=== PATIENT | male | born 1965 | race Caucasian/White ===

== ENCOUNTER 2017-07-18 11:28 | Inpatient (IN) | payer BC ==
[2017-07-18 11:34] VITALS: BMI 30.7
--- NOTE | 2017-07-18 11:58 | ED PDOC ---
HPI: Back Time Seen by Provider: 07/18/17 11:58 Chief Complaint (Nursing): Back Pain Chief Complaint (Provider): back pain History Per: Patient Additional Complaint(s): 52 year old male with history of chronic low back pain presents to ED for eval of persistent low back pain with radiation to left leg ongoing for several months. Patient has been under the care of a plate painter and takes oxycodone and Percocet daily but this does not provide adequate pain relief. He denies any recent fall or trauma. Patient states he has had chronic back pain for years but it has worsened over the past few months. Patient was referred to Dr. Valdes from his plate painter for further evaluation of back pain. Upon arrival patient rates pain as a 10 out of 10. He denies acute bowel or bladder dysfunction. Past Medical History Reviewed: Historical Data, Nursing Documentation, Vital Signs Vital Signs: Last Vital Signs Temp 97.8 F 07/18/17 11:34 Pulse 86 07/18/17 11:34 Resp 18 07/18/17 11:34 BP 149/72 07/18/17 11:34 Pulse Ox 99 07/18/17 11:34 - Medical History PMH: Back Problems, Fibromyalgia, HTN - Surgical History Other surgeries: right foot surgery - Family History Family History: States: No Known Family Hx - Living Arrangements Living Arrangements: With Family - Social History Current smoker - smoking cessation education provided: No Ex-Smoker (has not smoked in the last 12 months): No Alcohol: None Drugs: Denies - Home Medications Home Medications: Ambulatory Orders Medication Instructions Recorded ALPRAZolam [Xanax] 1 mg PO HS 07/18/17 Celecoxib [Celebrex] 200 mg PO HS 07/18/17 Cholecalciferol (Vitamin D3) 20,000 unit PO MO 07/18/17 [Vitamin D3] Cyanocobalamin [Vitamin B12] 1,000 mcg PO DAILY 07/18/17 DULoxetine [Cymbalta] 30 mg PO DAILY@1200 07/18/17 DULoxetine [Cymbalta] 60 mg PO DAILY 07/18/17 Dextroamphetamine/Amphetamine 20 mg PO DAILY@1200 07/18/17 [Adderall 20 mg Tablet] Esomeprazole Magnesium [Nexium] 40 mg PO DAILY 07/18/17 Gabapentin [Neurontin] 400 mg PO HS 07/18/17 Lisdexamfetamine Dimesylate 30 mg PO DAILY 07/18/17 [Vyvanse] Lisinopril [Zestril] 40 mg PO DAILY 07/18/17 Metoprolol Succinate [Toprol XL] 100 mg PO DAILY 07/18/17 Oxycodone HCl [Oxycontin] 10 mg PO Q12H 07/18/17 Testosterone Cypionate 200 mg IM Q14D 07/18/17 [Depo-Testosterone Inj] tiZANidine [Zanaflex] 4 mg PO HS PRN 07/18/17 - Allergies Allergies/Adverse Reactions: Allergies Allergy/AdvReac Type Severity Reaction Status Date / Time No Known Allergies Allergy Verified 07/18/17 11:48 Review of Systems ROS Statement: Except As Marked, All Systems Reviewed And Found Negative Constitutional: Negative for: Fever Cardiovascular: Negative for: Chest Pain Gastrointestinal: Negative for: Nausea, Vomiting Genitourinary Male: Negative for: Dysuria, Frequency, Incontinence, Hematuria Musculoskeletal: Positive for: Back Pain, Leg Pain Physical Exam - Reviewed Nursing Documentation Reviewed: Yes Vital Signs Reviewed: Yes - Physical Exam Appears: Positive for: Well, Non-toxic, No Acute Distress Skin: Negative for: Rash Eye Exam: Positive for: Normal appearance, EOMI, PERRL Cardiovascular/Chest: Positive for: Regular Rate, Rhythm Respiratory: Positive for: Normal Breath Sounds Back: Positive for: Vertebral Tenderness (left lumbar region). Negative for: L CVA Tenderness, R CVA Tenderness Extremity: Positive for: Normal ROM Neurologic/Psych: Positive for: Alert, Oriented - Laboratory Results Result Diagrams: 07/18/17 13:30 07/18/17 13:30 - ECG Interpretation Of ECG: NSR 73 bpm, LVH, reviewed by PA and ED attending. O2 Sat by Pulse Oximetry: 99 Pulse Ox Interpretation: Normal - Other Rad Bedside chest X-Ray: Interpreted by Me, Viewed By Me X-Ray Interpretation: no active disease, no acute finding Medical Decision Making Medical Decision Makin52 year old with intractable back pain Plan: CBC CMP IVF EKG CXR IV morphine IV zofran Patient with severe intractable back pain and associated left lower extremity radiculopathy, not improved by conservative management with pain medication and outpatient treatment. Case was d/w Dr. Delacruz who will admit patient on behalf of Dr. Valdes. Patient to go to surgery tomorrow with Dr. Valdes. Patient is aware of and agrees with plan. Family practice resident was contacted for admission as per request of Dr. Delacruz. Disposition - Clinical Impression Clinical Impression: Intractable back pain, Lumbar radiculopathy, acute - Patient ED Disposition Is Patient to be Admitted: Yes - Disposition Disposition Time: 12:25 Condition: FAIR - Pt Status Changed To: Hospital Disposition Of: Inpatient - Admit Certification Admit to Inpatient:: After my assessment, the patient will require hospitalization for at least two midnights. This is because of the severity of symptoms shown, intensity of services needed, and/or the medical risk in this patient being treated as an outpatient. - POA Present On Arrival: None Results - Lab Results Lab Results: 07/18/17 07/18/17 07/18/17 13:30 13:30 13:30 WBC RBC Hgb Hct MCV MCH MCHC RDW Plt Count MPV Neut % (Auto) Lymph % (Auto) [place] % (Auto) Eos % (Auto) Baso % (Auto) Neut # Lymph # [place] # Eos # Baso # PT 10.9 INR 1.1 APTT 32.4 Sodium 140 Potassium 4.7 Chloride 102 Carbon Dioxide 27 Anion Gap 16 BUN 15 Creatinine 1.3 Est GFR ( Amer) > 60 Est GFR (Non-Af Amer) 58 Random Glucose 100 Calcium 9.6 Total Bilirubin 0.7 AST 41 ALT 55 Alkaline Phosphatase 57 Total Protein 7.8 Albumin 4.6 Globulin 3.2 Albumin/Globulin Ratio 1.5 Blood Type O POSITIVE Antibody Screen Negative BBK History Checked No verified bt 07/18/17 13:30 WBC 5.9 RBC 5.72 Hgb 17.3 Hct 51.1 H MCV 89.4 MCH 30.3 MCHC 33.9 RDW 14.4 Plt Count 189 MPV 9.1 Neut % (Auto) 68.3 Lymph % (Auto) 20.4 [place] % (Auto) 8.3 Eos % (Auto) 2.6 Baso % (Auto) 0.4 Neut # 4.1 Lymph # 1.2 Karnes # 0.5 Eos # 0.2 Baso # 0.0 PT INR APTT Sodium Potassium Chloride Carbon Dioxide Anion Gap BUN Creatinine Est GFR ( Amer) Est GFR (Non-Af Amer) Random Glucose Calcium Total Bilirubin AST ALT Alkaline Phosphatase Total Protein Albumin Globulin Albumin/Globulin Ratio Blood Type Antibody Screen BBK History Checked
[2017-07-18] MEDS ORDERED: Sodium Chloride 0.9% 1,000 ML IV STA (12:26)
--- NOTE | 2017-07-18 13:22 | RAD ---
HISTORY: admit COMPARISON: No prior. FINDINGS: LUNGS: The lungs are clear. PLEURA: No significant pleural effusion identified, no pneumothorax apparent. CARDIOVASCULAR: There is mild cardiomegaly. OSSEOUS STRUCTURES: No significant abnormalities. VISUALIZED UPPER ABDOMEN: Normal. OTHER FINDINGS: None. IMPRESSION: No active pulmonary disease.
--- NOTE | 2017-07-18 13:42 | CP.PCM.HP ---
History of Present Illness - History of Present Illness History of Present Illness: 52 year old male with hx of fibromyalgia, htn and chronic lower back pain presented to [facility], [place] for intractable back pain. Pain has been present for years with worseningin the past few months. He denies any trauma or inciting event that triggered his back pain. 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 Back pain is severe with associated left lateral leg pain. He states that his ROM is somewhat limited but he is able to do daily activities. He has some numbness and tingling in left leg. No bowel or bladder incontinence/retention. He reports good effort tolerance. No chest pain, shortness of breath or history of cardiac disease. Accompanied by his . 12 point review of systems negative except as above PMH: htn, fibromyalgia, chronic back pain Social: denies smoking, etoh, illicit drug use. Past surgical hx: bunion surgery Medications: reviewed Allergies: NKDA Present on Admission - Present on Admission Any Indicators Present on Admission: No Past Patient History - Past Social History Alcohol: None Drugs: Denies - CARDIAC Hx Hypertension: Yes - PSYCHIATRIC Hx Substance Use: No - SURGICAL HISTORY Other/Comment: Bunionectomy - ANESTHESIA Hx Anesthesia: Yes Hx Anesthesia Reactions: No Meds Allergies/Adverse Reactions: Allergies Allergy/AdvReac Type Severity Reaction Status Date / Time No Known Allergies Allergy Verified 07/18/17 11:48 Physical Exam - Constitutional Appears: No Acute Distress (s/p pain medication, pain controlled) - Head Exam Head Exam: ATRAUMATIC, NORMAL INSPECTION, NORMOCEPHALIC - Eye Exam Eye Exam: Normal appearance - ENT Exam ENT Exam: Mucous Membranes Moist, Normal Exam - Respiratory Exam Respiratory Exam: Clear to Auscultation Bilateral, NORMAL BREATHING PATTERN. absent: Rales, Rhonchi, Wheezes, Respiratory Distress - Cardiovascular Exam Cardiovascular Exam: REGULAR RHYTHM, +S1, +S2. absent: Bradycardia, Tachycardia - GI/Abdominal Exam GI & Abdominal Exam: Normal Bowel Sounds, Soft. absent: Tenderness - Extremities Exam Extremities exam: Positive for: normal inspection. Negative for: pedal edema, tenderness - Back Exam Back exam: NORMAL INSPECTION, tenderness (mild lumbosacral midline tenderness) - Neurological Exam Neurological exam: Alert, CN II-XII Intact, Oriented x3, Reflexes Normal Additional comments: gait not assessed - Psychiatric Exam Psychiatric exam: Normal Affect, Normal Mood - Skin Skin Exam: Dry, Intact, Normal Color, Warm Results - Vital Signs Recent Vital Signs: Last Vital Signs Temp 97.8 F 07/18/17 11:34 Pulse 86 07/18/17 11:34 Resp 18 07/18/17 11:34 BP 149/72 07/18/17 11:34 Pulse Ox 99 07/18/17 13:37 - Labs Result Diagrams: 07/18/17 13:30 07/18/17 13:30 Assessment & Plan (1) Lumbar radiculopathy, acute Assessment and Plan: 52 year old male with hx of chronic back pain now with intractable back pain and lumbar radiculopathy, Dr. Valdes - consult ; -no bowel/bladder incontinence -labs ordered/ekg/cxr -pain control with morphine PRN -case d/w attending. Status: Acute (2) Intractable back pain Status: Chronic (3) Fibromyalgia Status: Chronic (4) HTN (hypertension) Assessment and Plan: controlled Status: Chronic (5) DVT prophylaxis Assessment and Plan: scds Status: Acute
[2017-07-18 14:12] LABS: BASO % 0.4 % (0.0-2.0); EOS # 0.2 K/uL (0.0-0.7); EOS % 2.6 % (0.0-4.0); HEMATOCRIT 51.1 % (35.0-51.0); LYMPH # 1.2 K/uL (1.0-4.3); LYMPH % 20.4 % (20.0-40.0); MEAN CELL VOLUME 89.4 fl (80.0-94.0); MEAN CORPUSCULAR HEMOGLOBIN 30.3 pg (27.0-31.0); MEAN CORPUSCULAR HGB CONC 33.9 g/dL (33.0-37.0); MEAN PLATELET VOLUME 9.1 fl (7.2-11.7); MONO # 0.5 K/uL (0.0-0.8); MONO % 8.3 % (0.0-10.0); NEUT # 4.1 K/uL (1.8-7.0); NEUT % 68.3 % (50.0-75.0); NRBC % 1.7 % (0.0-0.0); RED CELL DISTRIBUTION WIDTH 14.4 % (11.5-14.5); WHITE BLOOD COUNT 5.9 K/uL (4.8-10.8)
[2017-07-18 14:23] LABS: ALB/GLOB RATIO 1.5 (1.0-2.1); ALKALINE PHOSPHATASE 57 U/L (38-126); ALT/SGPT 55 U/L (21-72); AST/SGOT 41 U/L (17-59); BILIRUBIN,TOTAL 0.7 mg/dl (0.2-1.3); BLOOD UREA NITROGEN 15 mg/dl (9-20); CALCIUM 9.6 mg/dL (8.4-10.2); CARBON DIOXIDE 27 mmol/L (22-30); CHLORIDE 102 mmol/L (98-107); GFR AFRICAN-AMERICAN > 60; GLUCOSE,RANDOM 100 mg/dL (75-110); SODIUM 140 mmol/l (132-148); TOTAL PROTEIN 7.8 G/DL (6.3-8.2)
[2017-07-18 14:24] LABS: PARTIAL THROMBOPLASTIN TIME 32.4 Seconds (25.6-37.1)
[2017-07-18 14:41] LABS: POTASSIUM 4.7 MMOL/L (3.6-5.0)
[2017-07-18] MEDS ORDERED: Pneumococcal 23-Valent Vaccine IM ONE (18:28)
[2017-07-18] MEDS: oxyCODONE 10 mg ER Tab (oxyCONTIN) PO SCH (18:40)
[2017-07-18] MEDS: Dextrose 5%/0.45% NS 1,000 ML IV SCH (20:09)
[2017-07-18] MEDS ORDERED: Sodium Chloride 0.9% 1,000 ML IV SCH (22:00)
[2017-07-18] MEDS: Amoxicillin-Clav 875-125 mg Tab PO SCH (22:21)
[2017-07-19] MEDS: oxyCODONE 10 mg ER Tab (oxyCONTIN) PO SCH ×2 (03:21→15:06)
--- NOTE | 2017-07-19 07:54 | CP.PCM.CON ---
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 Review of Systems - Review of Systems Systems not reviewed;Unavailable: Acuity of Condition - Cardiovascular Additional comments: Hx Htn - Gastrointestinal Additional comments: lactose Intolerance - Musculoskeletal Musculoskeletal: Muscle Weakness, Radiating Pain into Limb, Tingling - Neurological Neurological: As Per HPI Additional comments: Hx Fibromyalgia - Psychiatric Additional comments: Hx ADHD - Hematologic/Lymphatic Additional comments: last used Advil 2 weeks ago Past Patient History - Infectious Disease Hx of Infectious Diseases: None - Tetanus Immunizations Tetanus Immunization: Unknown - Past Medical History & Family History Past Medical History?: Yes - Past Social History Smoking Status: Never Smoked Chewing Tobacco Use: No Cigar Use: No 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 Pt recently had root canal sx from left upper mouth X 1 week ago - RENAL Hx Chronic Kidney Disease: No - ENDOCRINE/METABOLIC Hx Endocrine Disorders: No - INTEGUMENTARY Hx Dermatological Problems: No - MUSCULOSKELETAL/RHEUMATOLOGICAL Hx Musculoskeletal Disorders: Yes Hx Back Pain: Yes Hx Falls: No Other/Comment: Fibromyalagia - GASTROINTESTINAL Hx Gastrointestinal Disorders: No - GENITOURINARY/GYNECOLOGICAL Hx Genitourinary Disorders: No - PSYCHIATRIC Hx Substance Use: No Other/Comment: Hx of ADHD - SURGICAL HISTORY Other/Comment: Bunionectomy - ANESTHESIA Hx Anesthesia: Yes Hx Anesthesia Reactions: No Meds Home Medications: Home Medication List Medication Instructions Recorded Confirmed Type Clindamycin [Cleocin] 300 mg PO Q8 #15 cap 07/20/17 Rx Dexamethasone [Decadron] 4 mg PO DAILY #10 tab 07/20/17 Rx Lactobacillus Acidophilus [Bacid 1 cap PO DAILY #15 cap 07/20/17 Rx Acidophilus] Naloxegol Oxalate [Movantik] 25 mg PO DAILY #30 tab 07/20/17 Rx oxyCODONE/Acetaminophen [Percocet 1 ea PO Q4 #30 tab 07/20/17 Rx 5/325 mg Tab] Allergies/Adverse Reactions: Allergies Allergy/AdvReac Type Severity Reaction Status Date / Time No Known Allergies Allergy Verified 07/18/17 11:48 - Medications Medications: Current Medications Acetaminophen (Tylenol 325mg Tab) 325 mg PO Q6 PRN PRN Reason: Pain, Mild (1-3) Alprazolam (Xanax) 1 mg PO HS [facility] Last Admin: 07/18/17 21:40 Dose: 1 mg Amoxicillin/Clavulanate Potassium (Augmentin 875 Mg-125 Mg Tab) 1 tab PO Q12 [facility] Last Admin: 07/18/17 22:21 Dose: 1 tab Amphetamine/Dextroamphetamine (Adderall) 20 mg PO DAILY@1200 [facility] Celecoxib (Celebrex) 200 mg PO [facility] Last Admin: 07/18/17 21:40 Dose: 200 mg Duloxetine HCl (Cymbalta) 30 mg PO DAILY@1200 [facility] Duloxetine HCl (Cymbalta) 60 mg PO DAILY [facility] Gabapentin (Neurontin) 400 mg PO [facility] Last Admin: 07/18/17 21:40 Dose: 400 mg Home Med (Cholecalciferol (Vitamin D3) [Vitamin D3]) 20,000 unit PO MO [facility] Dextrose/Sodium Chloride (Dextrose 5%/0.45% Ns 1000 Ml) 1,000 mls @ 80 mls/hr IV .[id number] [facility] Stop: 07/19/17 19:21 Last Admin: 07/18/17 20:09 Dose: 80 mls/hr Lisdexamfetamine Dimesylate (Vyvanse) 30 mg PO DAILY [facility] Metoprolol Succinate (Toprol Xl) 100 mg PO DAILY [facility] Morphine Sulfate (Morphine) 2 mg IVP Q4 PRN PRN Reason: Pain, moderate (4-7) Morphine Sulfate (Morphine) 4 mg IVP Q4 PRN PRN Reason: Pain, severe (8-10) Last Admin: 07/18/17 21:26 Dose: 4 mg Ondansetron HCl (Zofran Inj) 4 mg IVP Q6 PRN PRN Reason: Nausea/Vomiting Oxycodone HCl (Oxycontin Extended Release Tab) 10 mg PO Q12H [facility] Stop: 07/21/17 14:46 Last Admin: 07/19/17 03:21 Dose: Not Given Pantoprazole Sodium (Protonix Ec Tab) 40 mg PO DAILY [facility] Sennosides (Senokot Tab) 17.2 mg PO HS [facility] Tizanidine HCl (Zanaflex) 4 mg PO HS PRN PRN Reason: Muscle spasm Physical Exam - Constitutional Appears: Well, Non-toxic, No Acute Distress - Head Exam Head Exam: ATRAUMATIC, NORMOCEPHALIC - Eye Exam Eye Exam: EOMI, Normal appearance, PERRL Pupil Exam: NORMAL ACCOMODATION - ENT Exam ENT Exam: Mucous Membranes Moist - Neck Exam Neck exam: Positive for: Normal Inspection - Respiratory Exam Respiratory Exam: Clear to Auscultation Bilateral - Cardiovascular Exam Cardiovascular Exam: REGULAR RHYTHM, +S1, +S2 - GI/Abdominal Exam GI & Abdominal Exam: Normal Bowel Sounds, Soft - Rectal Exam Rectal Exam: Deferred - Extremities Exam Extremities exam: Positive for: pedal pulses present Additional comments: calves soft NT - Back Exam Back exam: vertebral tenderness - Neurological Exam Neurological exam: Alert, Oriented x3 Additional comments: RODRIGUES x 4 antigravity limited LLE secondary to back pain,+ SLR at 30 degree's LLE, decreased sensation left L4-5 dermatome,+ 2 DTR's,neg babinski,no pelvic paresthesias - Psychiatric Exam Psychiatric exam: Normal Affect, Normal Mood - Skin Skin Exam: Dry, Intact Results - Vital Signs Recent Vital Signs: Last Vital Signs Temp 97.7 F 07/19/17 00:41 Pulse 73 07/19/17 00:41 Resp 230 H 07/19/17 00:41 BP 144/74 07/19/17 00:41 Pulse Ox 99 07/19/17 00:41 - Labs Result Diagrams: 07/20/17 05:35 07/20/17 05:35 Labs: Laboratory Results - last 24 hr 07/18/17 07/18/17 07/18/17 13:30 13:30 13:30 WBC 5.9 RBC 5.72 Hgb 17.3 Hct 51.1 H MCV 89.4 MCH 30.3 MCHC 33.9 RDW 14.4 Plt Count 189 MPV 9.1 Neut % (Auto) 68.3 Lymph % (Auto) 20.4 [place] % (Auto) 8.3 Eos % (Auto) 2.6 Baso % (Auto) 0.4 Neut # 4.1 Lymph # 1.2 [place] # 0.5 Eos # 0.2 Baso # 0.0 PT 10.9 INR 1.1 APTT 32.4 Sodium 140 Potassium 4.7 Chloride 102 Carbon Dioxide 27 Anion Gap 16 BUN 15 Creatinine 1.3 Est GFR ( Amer) > 60 Est GFR (Non-Af Amer) 58 Random Glucose 100 Calcium 9.6 Total Bilirubin 0.7 AST 41 ALT 55 Alkaline Phosphatase 57 Total Protein 7.8 Albumin 4.6 Globulin 3.2 Albumin/Globulin Ratio 1.5 Blood Type Antibody Screen BBK History Checked 07/18/17 13:30 WBC RBC Hgb Hct MCV MCH MCHC RDW Plt Count MPV Neut % (Auto) Lymph % (Auto) [place] % (Auto) Eos % (Auto) Baso % (Auto) Neut # Lymph # [place] # Eos # Baso # PT INR APTT Sodium Potassium Chloride Carbon Dioxide Anion Gap BUN Creatinine Est GFR ( Amer) Est GFR (Non-Af Amer) Random Glucose Calcium Total Bilirubin AST ALT Alkaline Phosphatase Total Protein Albumin Globulin Albumin/Globulin Ratio Blood Type O POSITIVE Antibody Screen Negative BBK History Checked No verified bt Assessment & Plan - Assessment and Plan (Free Text) Assessment: 52 yo male with Lumbar Spondylosis and HNP Left L4-5 with LLE radiculapathy Plan: risks and benefits d/w pt regarding surgery,expressed understanding and wishes to proceed.
[2017-07-19] MEDS: Amoxicillin-Clav 875-125 mg Tab PO SCH (08:16)
[2017-07-19] MEDS: Pantoprazole 40 mg EC Tab PO SCH (08:17)
[2017-07-19] MEDS: Metoprolol Succinate 100 mg XL Tab PO SCH (08:22)
[2017-07-19] MEDS: Dextrose 5%/0.45% NS 1,000 ML IV SCH (08:24)
[2017-07-19] MEDS ORDERED: Amoxicillin-Clav 875-125 mg Tab PO SCH (09:00)
[2017-07-19] MEDS ORDERED: Bupivacaine HCl 0.25% PF (30 ml) Inj ONE (09:57)
[2017-07-19] MEDS ORDERED: Thrombin Topical 5,000 IU Spray Kit ONE (09:58)
[2017-07-19] MEDS ORDERED: Midazolam 2 MG/2 ML VIAL ONE (09:59)
[2017-07-19] MEDS ORDERED: Succinylcholine 200 mg/10 ml Inj IV ONE (09:59)
[2017-07-19] MEDS ORDERED: Rocuronium 10 mg/ml (5 ml) ONE ×2 (09:59→11:12)
[2017-07-19] MEDS ORDERED: Propofol 10 mg/ml Inj (20 ML) ONE (09:59)
[2017-07-19] MEDS ORDERED: ePHEDrine 50 mg/ml Inj ONE (09:59)
[2017-07-19] MEDS ORDERED: Absorbable Gelatin Sponge Size 100 ONE (09:59)
[2017-07-19] MEDS ORDERED: Lactated Ringer's 1,000 ML IV ONE ×3 (10:15→12:10)
[2017-07-19] MEDS ORDERED: Dexamethasone 4 mg/1 ml ONE ×2 (11:03)
[2017-07-19] MEDS ORDERED: Neostigmine Methylsulfate 3mg/3ml Syringe IV ONE (11:37)
[2017-07-19] MEDS ORDERED: Neostigmine Methylsulfate 2 MG/2 ML ML IV ONE (11:37)
[2017-07-19] MEDS ORDERED: Gelatin Sponge 10 X 12.5 cm (Gelfilm Sterile Non Opthalmic) MM ONE (11:50)
[2017-07-19] MEDS ORDERED: HEMOSTATIC MATRIX 10 ML DIS.NEEDLE TOP ONE (11:50)
[2017-07-19] MEDS ORDERED: Thrombin Topical 5,000 IU Spray Kit TOP ONE (11:54)
[2017-07-19] MEDS ORDERED: Bupivacaine HCl 0.25% PF (30 ml) Inj IJ ONE (11:54)
[2017-07-19] MEDS ORDERED: Sodium Chloride 0.9% 500 ML IV ONE (11:55)
[2017-07-19] MEDS: HYDROmorphone 0.5 mg/0.5 ml ISec IVP PRN ×4 (12:20→13:10)
--- NOTE | 2017-07-19 13:56 | CP.PCM.PN ---
Subjective - Date & Time of Evaluation Date of Evaluation: 07/19/17 Time of Evaluation: 14:33 - Subjective Subjective: POD# 0 Patient seen and examined by attending in AM preop. Patient seen and examined by the press writer post operatively in PACU. He tolerated the procedure well. Patient sleeping, but arousable. No complaints of pain or nausea. He will be transferred back to Med/Surg floor shortly. All of the above d/w patients bedside. Objective - Vital Signs/Intake and Output Vital Signs (last 24 hours): Temp Pulse Resp BP Pulse Ox 97.5 F L 78 18 127/79 96 07/19/17 12:53 07/19/17 13:40 07/19/17 13:40 07/19/17 13:40 07/19/17 13:40 Intake and Output: 07/19/17 07/19/17 06:59 18:59 Intake Total 1999 Balance 1999 - Medications Medications: Current Medications Acetaminophen (Tylenol 325mg Tab) 325 mg PO Q6 PRN PRN Reason: Pain, Mild (1-3) Alprazolam (Xanax) 1 mg PO [facility] Last Admin: 07/18/17 21:40 Dose: 1 mg Amphetamine/Dextroamphetamine (Adderall) 20 mg PO DAILY@1200 [facility] Duloxetine HCl (Cymbalta) 30 mg PO DAILY@1200 [facility] Duloxetine HCl (Cymbalta) 60 mg PO DAILY [facility] Last Admin: 07/19/17 08:17 Dose: Not Given Enoxaparin Sodium (Lovenox) 40 mg SC DAILY [facility] PRN Reason: Protocol Gabapentin (Neurontin) 400 mg PO [facility] Last Admin: 07/18/17 21:40 Dose: 400 mg Home Med (Cholecalciferol (Vitamin D3) [Vitamin D3]) 20,000 unit PO MO [facility] Hydromorphone HCl (Dilaudid) 0.5 mg IVP Q10M PRN PRN Reason: Pain, severe (8-10) Stop: 07/19/17 14:19 Last Admin: 07/19/17 13:10 Dose: 0.5 mg Dextrose/Sodium Chloride (Dextrose 5%/0.45% Ns 1000 Ml) 1,000 mls @ 80 mls/hr IV .[id number] [facility] Stop: 07/19/17 19:21 Last Admin: 07/19/17 08:24 Dose: 80 mls/hr Clindamycin Phosphate 600 mg/ (Sodium Chloride) 104 mls @ 104 mls/hr IVPB Q8 [facility] Dexamethasone 4 mg/ Sodium (Chloride) 51 mls @ 102 mls/hr IVPB Q6 [facility] Lisdexamfetamine Dimesylate (Vyvanse) 30 mg PO DAILY [facility] Last Admin: 07/19/17 08:17 Dose: Not Given Metoprolol Succinate (Toprol Xl) 100 mg PO DAILY [facility] Last Admin: 07/19/17 08:22 Dose: 100 mg Morphine Sulfate (Morphine) 2 mg IVP Q4 PRN PRN Reason: Pain, moderate (4-7) Morphine Sulfate (Morphine) 4 mg IVP Q4 PRN PRN Reason: Pain, severe (8-10) Last Admin: 07/18/17 21:26 Dose: 4 mg Ondansetron HCl (Zofran Inj) 4 mg IVP Q6 PRN PRN Reason: Nausea/Vomiting Ondansetron HCl (Zofran Inj) 4 mg IVP ONCE PRN PRN Reason: Nausea/Vomiting Stop: 07/19/17 14:19 Oxycodone HCl (Oxycontin Extended Release Tab) 10 mg PO Q12H [facility] Stop: 07/21/17 14:46 Last Admin: 07/19/17 03:21 Dose: Not Given Pantoprazole Sodium (Protonix Ec Tab) 40 mg PO DAILY [facility] Last Admin: 07/19/17 08:17 Dose: Not Given Sennosides (Senokot Tab) 17.2 mg PO HS [facility] Tizanidine HCl (Zanaflex) 4 mg PO HS PRN PRN Reason: Muscle spasm - Labs Labs: 07/18/17 13:30 07/18/17 13:30 PT 10.9 Seconds (9.8-13.1) 07/18/17 13:30 INR 1.1 (0.9-1.2) 07/18/17 13:30 APTT 32.4 Seconds (25.6-37.1) 07/18/17 13:30 - Constitutional Appears: Other (sleeping but arousable) - Eye Exam Eye Exam: Normal appearance - ENT Exam ENT Exam: Mucous Membranes Moist - Respiratory Exam Respiratory Exam: Clear to Ausculation Bilateral, NORMAL BREATHING PATTERN. absent: Rales, Rhonchi, Wheezes, Respiratory Distress - Cardiovascular Exam Cardiovascular Exam: REGULAR RHYTHM, +S1, +S2. absent: Bradycardia, Tachycardia Additional comments: HR 80s - GI/Abdominal Exam GI & Abdominal Exam: Soft. absent: Distended, Guarding, Tenderness - Extremities Exam Extremities Exam: absent: Pedal Edema, Tenderness - Neurological Exam Neurological Exam: CN II-XII Intact - Psychiatric Exam Psychiatric exam: Normal Affect, Normal Mood - Skin Skin Exam: Dry, Intact, Normal Color. absent: Diaphoretic, Pallor, Rash Assessment and Plan (1) Lumbar radiculopathy, acute Assessment & Plan: POD#0 s/p lumbar laminectomy 52 year old male with hx of chronic back pain now with intractable back pain and lumbar radiculopathy. Patient tolerated procedure well. -Pain control as ordered. -Senokot for constipation -pt/ot eval tomorrow Status: Acute (2) Intractable back pain Status: Chronic (3) Fibromyalgia Status: Chronic (4) HTN (hypertension) Assessment & Plan: Controlled Status: Chronic (5) DVT prophylaxis Assessment & Plan: lovenox in am, scds for now Status: Acute
[2017-07-19] MEDS: Clindamycin 600 MG in Sodium Chloride 0.9% 100 ML IVPB SCH (16:16)
[2017-07-19] MEDS: AMPHETAMINE SALT COMBINATION 10 MG TAB PO SCH (16:42)
[2017-07-19] MEDS: Dexamethasone 4 MG in Sodium Chloride 0.9% 50 ML IVPB SCH ×2 (16:43→21:16)
[2017-07-19 19:08] VITALS: RESP 20
[2017-07-20] MEDS: Clindamycin 600 MG in Sodium Chloride 0.9% 100 ML IVPB SCH ×2 (00:15→09:32)
[2017-07-20] MEDS: oxyCODONE 10 mg ER Tab (oxyCONTIN) PO SCH (02:53)
[2017-07-20] MEDS: Dexamethasone 4 MG in Sodium Chloride 0.9% 50 ML IVPB SCH ×2 (03:00→10:58)
--- NOTE | 2017-07-20 04:36 | OP ---
PROCEDURE DATE: 06/18/2017 PREOPERATIVE DIAGNOSIS: Lumbar herniated disk. POSTOPERATIVE DIAGNOSIS: Lumbar herniated disk. PROCEDURES: Left L4-L5 hemilaminotomy, medial facetectomy, microdiscectomy. Microscope has been used. Fluoroscopy has been used. SURGEON: Meng Valdes MD BRANCH MECHANIC: Michelle Morrell PA-C. Michelle Morrell is a physician pier master assistant who stayed throughout the case from the beginning to end, helped me to perform the surgery. DESCRIPTION OF PROCEDURE: The patient was brought to the operating room, anesthetized with general endotracheal anesthesia, placed in a prone position on a Jhon table. Care was taken to protect all pressure points. Back of the lumbar area thoroughly prepped and draped in same sterile manner after marking was consistent for lumbar laminectomy at L4-L5. After prepping and draping the area, skin has been incised. Bleeding skins have been controlled with bipolar washing machine operator. After using a Bovie washing machine operator, paraspinal muscles have been detached, attachments of spinous process, lamina of L4-L5. Светлана retractor has been applied to alter the facet joint of L4-L5. Fluoroscopy has been used in order to confirm this level. Under microscopic examination, the lamina of L4-L5, medial part of the facets of L4-L5 have been drilled. Drilling is continued till the top and bottom of the ligamentum flavum seen. Drilling is also continued on the middle part of the facets until the turn of ligamentum flavum has been seen. Once this has been done, lamina, medial part of the facets, ligamentum flavum has been removed. Note that neural tube had been retracted medially. Annulus has been incised. There was a large piece of herniated disk noted that has been removed. Various sizes of Pituitary rongeurs and curettes have been used in order to remove the all loose fragments and the nerve root has been found to be lax after that removal of the disk fragments. After hemostasis best achieved, fascia across the interspinous ligaments, spinous process with 1-Vicryl, subcutaneous tissue with 3-Vicryl. Skin had been closed with intradermal 3 Vicryl stitches. The patient tolerated the procedure, after procedure mobilized to the recovery room in stabilized condition. Meng Valdes MD
[2017-07-20 06:10] LABS: BASO % 0.2 % (0.0-2.0); BLOOD UREA NITROGEN 15 mg/dl (9-20); CALCIUM 8.9 mg/dL (8.4-10.2); CARBON DIOXIDE 24 mmol/L (22-30); CHLORIDE 102 mmol/L (98-107); GFR AFRICAN-AMERICAN > 60; GLUCOSE,RANDOM 124 mg/dL (75-110); HEMATOCRIT 45.9 % (35.0-51.0); LYMPH # 0.8 K/uL (1.0-4.3); LYMPH % 5.6 % (20.0-40.0); MEAN CELL VOLUME 90.5 fl (80.0-94.0); MEAN CORPUSCULAR HGB CONC 33.2 g/dL (33.0-37.0); MONO # 0.4 K/uL (0.0-0.8); MONO % 3.1 % (0.0-10.0); NEUT # 12.4 K/uL (1.8-7.0); NEUT % 91.1 % (50.0-75.0); NRBC % 0.2 % (0.0-0.0); PLATELET COUNT 180 K/uL (130-400); POTASSIUM 4.8 MMOL/L (3.6-5.0); RED CELL DISTRIBUTION WIDTH 14.3 % (11.5-14.5); SODIUM 137 mmol/l (132-148); WHITE BLOOD COUNT 13.6 K/uL (4.8-10.8)
[2017-07-20 07:04] VITALS: TEMP 97.7
[2017-07-20 07:32] VITALS: BP 129/68; PULSE 82; O2SAT 99
[2017-07-20 08:53] LABS: NEUTROPHIL 85 % (42-75); TOTAL CELLS COUNTED 100
[2017-07-20] MEDS ORDERED: Enoxaparin 40 mg Syringe SC SCH (09:00)
[2017-07-20] MEDS ORDERED: Ergocalciferol 50,000 Intl Units Cap PO SCH (09:30)
[2017-07-20] MEDS: Metoprolol Succinate 100 mg XL Tab PO SCH (09:33)
[2017-07-20] MEDS: Pantoprazole 40 mg EC Tab PO SCH (09:33)
--- NOTE | 2017-07-20 13:05 | CP.PCM.PCO ---
Assessment/Plan - Assessment/Plan Assessment (Free Text): Pt stable, tolerating diet and voiding freely. Pt ambulating in room without distress. Pt seen and cleared for d/c home by Dr. Delacruz. Pt to resume meds as per med rec. Rx given. Pt and at bedside verbalized understanding to d/c instructions.
[2017-07-20] MEDS: AMPHETAMINE SALT COMBINATION 10 MG TAB PO SCH (13:19)
--- NOTE | 2017-07-20 14:49 | RAD ---
PROCEDURE: Fluoroscopy up to 1 hr. HISTORY: SPINE COMPARISON: None TECHNIQUE: Standard protocol for this study/examination. FINDINGS: Submitted images from the current procedure: 1.0 IMPRESSION: Less than 1 hr fluoroscopic time utilized during performance of the procedure.
--- NOTE | 2017-07-21 18:25 | CARD ---
APPROVED REPORT EKG Measurement Heart [id number] <Conclusion> Normal sinus rhythm Minimal voltage criteria for LVH, may be normal variant T wave abnormality, consider inferior ischemia Abnormal ECG
== END 2017-07-20 14:00 | disposition home or self-care (01) | DRG 520 ==
LOC: H.ER 11:28 → H.ERHOLD 12:20 → H.MEDSURG1 15:22
PROVIDERS: ADMIT Family Medicine; ATTEND Family Medicine
PROC: 3E0234Z Introduction of Serum, Toxoid and Vaccine into Muscle, Percutaneous Approach (ICD-10-PCS; 2017-07-18)
PROC: 0SB20ZZ Excision of Lumbar Vertebral Disc, Open Approach (ICD-10-PCS; principal; 2017-07-19 11:45)
DX: M51.16 Intervertebral disc disorders with radiculopathy, lumbar region (principal); M47.26 Other spondylosis with radiculopathy, lumbar region; I10 Essential (primary) hypertension; M79.7 Fibromyalgia; G89.29 Other chronic pain; Z23 Encounter for immunization; Z79.899 Other long term (current) drug therapy